=== PATIENT | male | born 1945 | race Caucasian/White ===

== ENCOUNTER → 2020-03-30 | Outpatient (CLI) | payer MEDICARE, OTHER ==
--- NOTE | 2020-03-30 17:36 | RAD ---
ADDENDUM #1 Addendum: Laterality error. Examination submitted is PA view left hand, oblique and lateral views left middle f glenn. Updated report: FINDINGS: Soft tissue swelling about the left middle finger without acute fracture or dislocation. 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 IMPRESSION: 1. No evidence of acute fracture or dislocation. 2. Degenerative changes thumb CMC and triscaphe. Electronically signed by: Rj Giang MD (03/30/2020 5:45 PM) [facility] ORIGINAL REPORT EXAM: PA view left hand, oblique and lateral views right middle finger DATE: 03/30/2020 4:59 PM INDICATION: Reason: INJURY, PAIN AND SWELLING / Spl. Instructions: / History: COMPARISON: No Prior FINDINGS: Soft tissue swelling about the right middle finger without acute fracture or dislocation. Triscaphe a nd thumb CMC joint degenerative change degenerative change. IMPRESSION: 1. No evidence of acute fracture or dislocation. 2. Degenerative changes thumb CMC and triscaphe. Electronically signed by: Rj Giang MD (03/30/2020 5:34 PM) [facility]
== END ==
LOC: RAD 16:44
PROVIDERS: ATTEND Specialist
DX: M19.042 Primary osteoarthritis, left hand (principal)
CPT/HCPCS: 73140